=== PATIENT | female | born 1975 | race Caucasian/White ===

== ENCOUNTER 2016-09-25 21:17 | Emergency (ER) | payer MEDICAID, OTHER ==
[~2016-09-25] VITALS: Ht 162.6 cm; Wt 72.7 kg
[2016-09-25 21:31] LABS: GLUCOSE,POINT OF CARE 103 MG/DL (70-110)
[2016-09-25 21:35] LABS: APPEARANCE,URINE CLOUDY (CLEAR); GLUCOSE, URINE (UA) NEGATIVE (NEGATIVE); KETONES,URINE NEGATIVE (NEGATIVE); LEUKOCYTE ESTERASE ,URINE LARGE (NEGATIVE); OCCULT BLOOD,URINE LARGE (NEGATIVE); PROTEIN,URINE TRACE (NEGATIVE)
[2016-09-25 21:42] LABS: SQUAMOUS EPITHELIAL CELL,UR Few /LPF (None Seen)
[2016-09-25] MEDS ORDERED: CEPHALEXIN MONOHYDRATE 500 MG CAPSULE PO ONE (22:00)
[2016-09-25] MEDS ORDERED: PHENAZOPYRIDINE HCL 100 MG TABLET PO ONE (22:00)
[2016-09-25] MEDS ORDERED: ONDANSETRON HCL 4 MG TABLET PO ONE (22:00)
[2016-09-25 22:25] VITALS: BP 120/79
== END 2016-09-25 22:26 | disposition home or self-care (01) ==
LOC: EMS 21:18
DX: N39.0 Urinary tract infection, site not specified (principal); E11.9 Type 2 diabetes mellitus without complications
CPT/HCPCS: 81001; 82962; 84703; 87077; 87086; 87186; 99284; Q0162

== ENCOUNTER 2017-03-09 07:56 | Day surgery (SDC) | payer OTHER ==
[2017-03-04 09:28] LABS: BASOPHILS % (AUTO) 0.9 % (0.0-2.0); EOSINOPHILS % (AUTO) 1.6 % (1.0-6.0); HEMATOCRIT 39.5 % (36-46); HEMOGLOBIN 13.5 g/dL (12.0-16.0); LYMPHOCYTES # (AUTO) 2.1 K/uL (1.0-4.8); MEAN CORPUSCULAR HEMOGLOBIN 30.3 pg (26.0-34.0); MEAN CORPUSCULAR HGB CONC 34.2 G/dL (31.0-37.0); MEAN CORPUSCULAR VOLUME 89 fL (80-100); MONOCYTES # (AUTO) 0.4 K/uL (0.1-1.0); NEUTROPHILS # (AUTO) 3.8 K/uL (1.8-7.7); NEUTROPHILS % (AUTO) 58.5 % (40.0-70.0); PLATELET COUNT (AUTO) 270 K/uL (150-450); RED BLOOD CELL COUNT(AUTO) 4.46 MIL/uL (4.00-5.20); RED CELL DISTRIBUTION WIDTH 13.7 % (11.5-14.5); WHITE BLOOD COUNT (AUTO) 6.4 K/uL (4.5-11.0)
[~2017-03-09] VITALS: Ht 160 cm; Wt 69.5 kg
[~2017-03-09 07:56] MED LIST: ASPI-1093 PO; BUPIVACAINE HCL/PF 0.5% 30 ML VIAL ONE; CALC-51 PO; FentaNYL CITRATE-PF 100 MCG/2 ML VIAL IVP ONE; KETOROLAC TROMETHAMINE 60 MG/2 ML VIAL IM ONE; LIDOCAINE HCL 2%/EPI 1:200,000/PF 10 ML VIAL ONE; LIDOCAINE HCL/PF 2% 5 ML VIAL IM ONE; MAGN200T4 PO; METOCLOPRAMIDE HCL 5 MG/ML 2 ML VIAL IVP ONE; MIDAZOLAM HCL 2 MG/2 ML VIAL IVP ONE; ONDANSETRON HCL 4 MG/2 ML VIAL IVP ONE; PROPOFOL 1% 20 ML VIAL IVP ONE; RINGERS SOLUTION,LACTATED 1,000 ML IV ONE; TRAZ-144 PO
[2017-03-09] MEDS ORDERED: RINGERS SOLUTION,LACTATED 1,000 ML IV ONE ×2 (08:05→10:30)
[2017-03-09] MEDS ORDERED: CeFAZolin 2 GM/DEXTROSE 50 ML IV ONE ×2 (08:21→08:30)
[2017-03-09] MEDS ORDERED: GUM MASTIC/STORAX/MSAL/ALCOHOL LIQUID 0.67 ML VIAL TP ONE (08:36)
[2017-03-09 08:47] LABS: GLUCOSE COMMENT 1 Doctor Notified; GLUCOSE,POINT OF CARE 95 MG/DL (70-110)
[2017-03-09] MEDS ORDERED: FentaNYL CITRATE-PF 100 MCG/2 ML VIAL IVP PRN (10:45)
[2017-03-09] MEDS ORDERED: MEPERIDINE-PF 25 MG/ML SYRINGE IVP PRN (10:45)
[2017-03-09] MEDS ORDERED: IBUPROFEN 800 MG TABLET PO PRN (11:00)
[2017-03-09] MEDS ORDERED: ACETAMINOPHEN 500 MG TABLET PO PRN (11:00)
[2017-03-09] MEDS ORDERED: IBUPROFEN 600 MG TABLET PO PRN (11:00)
[2017-03-09] MEDS ORDERED: HYDROCODONE/ACETAMINOPHEN 5-325 MG TABLET PO PRN (11:00)
[2017-03-09] MEDS: HYDROmorphone 2 MG/ML SYRINGE IVP PRN ×4 (11:07→11:36)
[2017-03-09] MEDS ORDERED: MEPERIDINE-PF 25 MG/ML SYRINGE ONE (11:11)
[2017-03-09] MEDS ORDERED: HYDROmorphone 2 MG/ML SYRINGE ONE (11:12)
[2017-03-09] MEDS ORDERED: OXYGEN THERAPY IH SCH (20:00)
== END 2017-03-09 13:45 | disposition home or self-care (01) ==
LOC: SURGERY 07:56
PROVIDERS: ATTEND Surgery
DX: N80.8 Other endometriosis (principal); E11.9 Type 2 diabetes mellitus without complications; G47.00 Insomnia, unspecified; Z72.89 Other problems related to lifestyle; Z90.49 Acquired absence of other specified parts of digestive tract; Z98.890 Other specified postprocedural states
CPT/HCPCS: 36415; 49204; 82962; 84703; 85025; 88305; J0690; J1170; J1885; J2175; J2250; J2405; J2704; J2765; J3010; J3490 ×3; J7120

== ENCOUNTER 2017-04-24 16:19 | Emergency (ER) | payer OTHER ==
[~2017-04-24] VITALS: Ht 160 cm; Wt 68.2 kg
[~2017-04-24 16:19] MED LIST changes: -BUPIVACAINE HCL/PF 0.5% 30 ML VIAL ONE; -FentaNYL CITRATE-PF 100 MCG/2 ML VIAL IVP ONE; -KETOROLAC TROMETHAMINE 60 MG/2 ML VIAL IM ONE; -LIDOCAINE HCL 2%/EPI 1:200,000/PF 10 ML VIAL ONE; -LIDOCAINE HCL/PF 2% 5 ML VIAL IM ONE; -METOCLOPRAMIDE HCL 5 MG/ML 2 ML VIAL IVP ONE; -MIDAZOLAM HCL 2 MG/2 ML VIAL IVP ONE; -ONDANSETRON HCL 4 MG/2 ML VIAL IVP ONE; -PROPOFOL 1% 20 ML VIAL IVP ONE; -RINGERS SOLUTION,LACTATED 1,000 ML IV ONE
[2017-04-24 16:32] LABS: GLUCOSE,POINT OF CARE 117 MG/DL (70-110)
[2017-04-24 16:50] LABS: BASOPHILS % (AUTO) 0.5 % (0.0-2.0); EOSINOPHILS % (AUTO) 0.8 % (1.0-6.0); HEMATOCRIT 37.1 % (36-46); HEMOGLOBIN 12.5 g/dL (12.0-16.0); LYMPHOCYTES # (AUTO) 2.7 K/uL (1.0-4.8); LYMPHOCYTES % (AUTO) 25.6 % (22.0-44.0); MEAN CORPUSCULAR HGB CONC 33.5 G/dL (31.0-37.0); MEAN CORPUSCULAR VOLUME 89 fL (80-100); MONOCYTES # (AUTO) 0.6 K/uL (0.1-1.0); MONOCYTES % (AUTO) 5.3 % (2.0-9.0); NEUTROPHILS # (AUTO) 7.2 K/uL (1.8-7.7); NEUTROPHILS % (AUTO) 67.8 % (40.0-70.0); PLATELET COUNT (AUTO) 280 K/uL (150-450); RED BLOOD CELL COUNT(AUTO) 4.16 MIL/uL (4.00-5.20); RED CELL DISTRIBUTION WIDTH 13.7 % (11.5-14.5); WHITE BLOOD COUNT (AUTO) 10.6 K/uL (4.5-11.0)
[2017-04-24 16:58] LABS: ANION GAP 9 mmol/L (8-16); CALCIUM, TOTAL 8.3 mg/dL (8.8-10.5); CARBON DIOXIDE 27 mmol/L (22-29); CHLORIDE 104 mmol/L (98-107); CREATININE 0.68 mg/dL (0.60-1.30); GLOMERULAR FILTR. RATE CALC > 60 mL/min (>60); POTASSIUM 3.5 mmol/L (3.5-5.1); SODIUM SERUM 140 mmol/L (136-145); UREA NITROGEN, BLOOD 17 mg/dL (7-18)
[2017-04-24 17:03] LABS: ALANINE AMINOTRANSFERASE 23 U/L (12-78); ALBUMIN 3.3 g/dL (3.4-5.0); ASPARTATE AMINOTRANSFERASE 13 U/L (15-37); BILIRUBIN,TOTAL 0.3 mg/dL (0.1-1.0); TOTAL PROTEIN, SERUM 6.8 g/dL (6.4-8.2)
[2017-04-24 17:12] LABS: APPEARANCE,URINE CLOUDY (CLEAR); GLUCOSE, URINE (UA) NEGATIVE (NEGATIVE); KETONES,URINE NEGATIVE (NEGATIVE); LEUKOCYTE ESTERASE ,URINE TRACE (NEGATIVE); OCCULT BLOOD,URINE TRACE (NEGATIVE); PROTEIN,URINE NEGATIVE (NEGATIVE)
[2017-04-24 17:15] LABS: ADD UA MICROSCOPIC YES
[2017-04-24 17:20] LABS: SQUAMOUS EPITHELIAL CELL,UR Moderate /LPF (None Seen)
[2017-04-24 17:22] LABS: RBC,URINE 0-2 /HPF (0-2)
[2017-04-24 22:55] VITALS: BP 116/70
== END 2017-04-24 23:11 | disposition home or self-care (01) ==
LOC: EMS 16:20
DX: T18.2XXA Foreign body in stomach, initial encounter (principal)
CPT/HCPCS: 74176; 82962; 99285